=== PATIENT | female | born 1935 | race Caucasian/White ===

== ENCOUNTER 2017-08-23 11:02 | Outpatient (CLI) | payer MEDICARE | END 2017-08-23 11:03 | disposition home or self-care (01) | LOC: BICMAMMO 11:02 | PROVIDERS: ATTEND Internal Medicine Geriatric Medicine | DX: Z12.31 Encounter for screening mammogram for malignant neoplasm of breast (principal); Z80.3 Family history of malignant neoplasm of breast | CPT/HCPCS: 77063; 77067 ==

== ENCOUNTER 2018-03-01 15:43 | Outpatient (CLI) | payer MEDICARE ==
--- NOTE | 2018-03-01 16:35 | RAD ---
TWO VIEWS OF THE BILATERAL HIPS 03/01/18 COMPARISON: None. HISTORY: Bilateral hip pain for six months. FINDINGS: Two views of the bilateral hips shows no evidence of acute fracture or dislocation. No degenerative c hanges are seen. IMPRESSION: Unremarkable exam. POS: OFF
--- NOTE | 2018-03-01 16:55 | RAD ---
SINGLE VIEW PELVIS: Comparison: None. History: Bilateral hip pain for six months. FINDINGS: Single view of the pelvis shows no evidence of acute fracture or dislocation. No degenerative changes are seen in either hip. IMPRESSION: Unremarkable exam. POS: OFF
== END 2018-03-01 15:44 | disposition home or self-care (01) ==
LOC: BICRAD 15:43
PROVIDERS: ATTEND Internal Medicine Rheumatology
DX: M25.551 Pain in right hip (principal)
CPT/HCPCS: 72170; 73521

== ENCOUNTER 2018-09-11 09:59 | Outpatient (CLI) | payer MEDICARE ==
--- NOTE | 2018-09-11 10:47 | MMO ---
Bilateral MAMMO Bilat Screen [facility]. CLINICAL HISTORY: Patient is 83 years old and is seen for screening. The patient has the following family history of breast cancer: 2 sisters, at age 50. The patient has no personal history of cancer. VIEWS: The views performed were: bilateral craniocaudal with tomosynthesis; bilateral mediolateral oblique with tomosynthesis; and left mediolateral oblique. FILMS COMPARED: The present examination has been compared to prior imaging studies performed at [facility] on 07/06/2016 and 08/23/2017, and at [facility] on 06/21/2012, 06/20/2013 and 07/16/2014. MAMMOGRAM FINDINGS: There are scattered fibroglandular densities. There are benign appearing calcifications seen in both breasts. There are no suspicious masses, suspicious calcifications, or new areas of architectural distortion. IMPRESSION: THERE IS NO MAMMOGRAPHIC EVIDENCE OF MALIGNANCY. A ROUTINE FOLLOW-UP MAMMOGRAM IN 1 YEAR IS RECOMMENDED. THE RESULTS OF THIS EXAM WERE SENT TO THE PATIENT. ACR BI-RADS Category 2 - Benign finding MAMMOGRAPHY NOTE: 1. A negative mammogram report should not delay a biopsy if a dominant of clinically suspicious mass is present. 2. Approximately 10% to 15% of breast cancers are not detected by mammography. 3. Adenosis and dense breasts may obscure an underlying neoplasm.
== END 2018-09-11 10:00 | disposition home or self-care (01) ==
LOC: BICMAMMO 09:59
PROVIDERS: ATTEND Internal Medicine Geriatric Medicine
DX: Z12.31 Encounter for screening mammogram for malignant neoplasm of breast (principal); R92.1 Mammographic calcification found on diagnostic imaging of breast
CPT/HCPCS: 77063; 77067

== ENCOUNTER 2019-02-25 09:18 | Outpatient (CLI) | payer MEDICARE ==
--- NOTE | 2019-02-25 09:44 | RAD ---
EXAM: 2 views of the left femur HISTORY: Osteoporosis COMPARISON: None FINDINGS: There is no evidence of acute fracture or dislocation. No soft tissue swelling is seen. No degenerative changes are seen in the hip. IMPRESSION: No evidence of acute osseous abnormality.
--- NOTE | 2019-02-25 09:45 | RAD ---
EXAM: 2 views of the bilateral hips HISTORY: Osteoporosis COMPARISON: None FINDINGS: 2 views of the bilateral hips hip shows no evidence of acute fracture or dislocation. No de generative changes are seen. No soft tissue swelling is present. IMPRESSION: No evidence of acute osseous abnormality.
--- NOTE | 2019-02-25 09:46 | RAD ---
Exam: Single view of the pelvis HISTORY: Osteoporosis COMPARISON: 03/01/2018 FINDINGS: A single view the pelvis shows no evidence of acute fracture or dislocation. No degenerativ e changes seen in either hip. IMPRESSION: No evidence of acute osseous abnormality.
== END 2019-02-25 09:19 | disposition home or self-care (01) ==
LOC: BICRAD 09:18
PROVIDERS: ATTEND Internal Medicine Rheumatology
DX: M25.551 Pain in right hip (principal)
CPT/HCPCS: 72170; 73522

== ENCOUNTER 2019-03-05 12:10 | Outpatient (CLI) | payer MEDICARE ==
--- NOTE | 2019-03-05 13:43 | BD ---
DEXA SCAN: 03/05/2019 PROVIDED CLINICAL HISTORY: Postmenopausal screening. FINDINGS: LUMBAR SPINE BMD (g/cm2) T-SCORE L1 0.796 -1.8 L2 0.888 -1.3 L3 0.887 -1.8 L4 0.916 -1.3 TOTAL 0.874 -1.6 FEMORAL NECK 0.530 -2.9 TOTAL 0.812 -1.1 IMPRESSION: Calculated bone mineral density meets WHO criteria for osteoporosis in the left femoral neck and plac es the patient at prominent increased risk for fracture. POS: TPC
== END 2019-03-05 12:11 | disposition home or self-care (01) ==
LOC: BICMAMMO 12:10
PROVIDERS: ATTEND Internal Medicine Rheumatology
DX: M81.0 Age-related osteoporosis without current pathological fracture (principal)
CPT/HCPCS: 77080

== ENCOUNTER 2020-03-19 12:49 | Outpatient (CLI) | payer MEDICARE ==
--- NOTE | 2020-03-19 13:45 | BD ---
EXAM: Bone densitometry using DEXA HISTORY: 84 yo female. Screening for postmenopausal osteoporosis FINDINGS: L1--bone mineral density 0.808 g/sq cm; T score -1.7 ; Z score 0.9 L2--bone mineral density 0.892 g/sq cm; T score -1.2 ; Z score 1.6 L3--bone mineral density 0.922 g/sq cm; T score -1.5 ; Z score 1.5 L4--bone mineral density 0.888 g/sq cm; T score -1.6 ; Z score 1.5 Total L1-L4--bone mineral density 0.879 g/sq cm; T score -1.5 ; Z score 1.3 Left femoral neck--bone mineral density0.517; T score -3.0 ; Z score -0.5 Total proximal left femur--bone mineral density 0.77; T score -1.3 ; Z score 1.0 There has been an interval improvement of 0.5% in the BMD of the lumbar spine and a decrease of 3.1 % in the BMD of the proximal femur since the previous study of 03/05/2019. IMPRESSION: Osteoporosis
--- NOTE | 2020-03-19 14:11 | MMO ---
Bilateral MAMMO Bilat Screen [facility]. CLINICAL HISTORY: Patient is 84 years old and is seen for screening. The patient has the following family history of breast cancer: 2 sisters, at age 50. The patient has no personal history of cancer. VIEWS: The views performed were: bilateral craniocaudal with tomosynthesis and bilateral mediolateral oblique with tomosynthesis. FILMS COMPARED: The present examination has been compared to prior imaging studies performed at [facility] on 07/06/2016, 08/23/2017 and 09/11/2018, and at [facility] on 07/16/2014. This study has been interpreted with the assistance of computer-aided detection. MAMMOGRAM FINDINGS: There are scattered fibroglandular densities. Benign calcifications are noted bilaterally. There are no suspicious masses, suspicious calcifications, or new areas of architectural distortion. IMPRESSION: THERE IS NO MAMMOGRAPHIC EVIDENCE OF MALIGNANCY. A ROUTINE FOLLOW-UP MAMMOGRAM IN 1 YEAR IS RECOMMENDED. THE RESULTS OF THIS EXAM WERE SENT TO THE PATIENT. ACR BI-RADS Category 2 - Benign finding MAMMOGRAPHY NOTE: 1. A negative mammogram report should not delay a biopsy if a dominant of clinically suspicious mass is present. 2. Approximately 10% to 15% of breast cancers are not detected by mammography. 3. Adenosis and dense breasts may obscure an underlying neoplasm. Reported by: WANDER AVENDANO MD Electonically Signed: [id number]
--- NOTE | 2020-03-19 14:20 | ULT ---
SOFT TISSUE ULTRASOUND NECK: 03/19/20 INDICATIONS: Palpable area of left neck below ear. Directed soft tissue ultrasound to the area of palpable concern in the left neck is performed. Hypoec hoic nodular lesion is seen which is well circumscribed and measures approximately 1.0 x 0.5 x 0.9 cm . Subcutaneous lymph node would be suspected. No fluid or abscess apparent. IMPRESSION: Small hypoechoic nodule corresponding to the area of palpable concern suggests a small lymph node. POS: AGW
== END 2020-03-19 12:50 | disposition home or self-care (01) ==
LOC: BICMAMMO 12:49
PROVIDERS: ATTEND Family Medicine
DX: Z12.31 Encounter for screening mammogram for malignant neoplasm of breast (principal); M81.0 Age-related osteoporosis without current pathological fracture; R59.0 Localized enlarged lymph nodes; Z80.3 Family history of malignant neoplasm of breast
CPT/HCPCS: 76536; 77063; 77067; 77080

== ENCOUNTER 2021-03-23 11:26 | Outpatient (CLI) | payer MEDICARE | END 2021-03-23 11:27 | disposition home or self-care (01) | LOC: BICMAMMO 11:26 | PROVIDERS: ATTEND Family Medicine | DX: Z12.31 Encounter for screening mammogram for malignant neoplasm of breast (principal); Z80.3 Family history of malignant neoplasm of breast | CPT/HCPCS: 77063; 77067 ==

== ENCOUNTER 2022-06-28 09:41 | Outpatient (CLI) | payer OTHER | END 2022-06-28 09:42 | disposition home or self-care (01) | LOC: BICMAMMO 09:41 | PROVIDERS: ATTEND Family Medicine | DX: Z13.820 Encounter for screening for osteoporosis (principal); N95.9 Unspecified menopausal and perimenopausal disorder; M81.0 Age-related osteoporosis without current pathological fracture; M85.88 Other specified disorders of bone density and structure, other site | CPT/HCPCS: 77080 ==

== ENCOUNTER 2022-09-12 10:56 | Outpatient (CLI) | payer OTHER | END 2022-09-12 10:57 | disposition home or self-care (01) | LOC: RAD 10:56 | PROVIDERS: ATTEND Nurse Practitioner Family | DX: M25.511 Pain in right shoulder (principal) ==

== ENCOUNTER 2023-04-23 11:12 | Outpatient (CLI) | payer OTHER | END 2023-04-23 11:13 | disposition home or self-care (01) | LOC: BICMAMMO 11:12 | PROVIDERS: ATTEND Family Medicine | DX: Z12.31 Encounter for screening mammogram for malignant neoplasm of breast (principal); Z80.3 Family history of malignant neoplasm of breast | CPT/HCPCS: 77063; 77067 ==

== ENCOUNTER 2023-10-25 14:30 | Outpatient (CLI) | payer OTHER | END 2023-10-25 14:31 | disposition home or self-care (01) | LOC: BICMAMMO 14:30 | PROVIDERS: ATTEND Family Medicine | DX: M81.0 Age-related osteoporosis without current pathological fracture (principal); M85.88 Other specified disorders of bone density and structure, other site | CPT/HCPCS: 77080 ==

== ENCOUNTER 2024-07-28 10:27 | Outpatient (CLI) | payer OTHER | END 2024-07-28 10:28 | disposition home or self-care (01) | LOC: BICMAMMO 10:27 | PROVIDERS: ATTEND Family Medicine | DX: Z12.31 Encounter for screening mammogram for malignant neoplasm of breast (principal); Z80.3 Family history of malignant neoplasm of breast | CPT/HCPCS: 77063; 77067 ==